=== PATIENT | female | born 1945 | race Caucasian/White ===

== ENCOUNTER 2023-08-30 12:09 | Emergency (ER) | payer MEDICARE ==
[~2023-08-30] VITALS: Ht 160 cm; Wt 72.6 kg
[2023-08-30 12:27] VITALS: O2SAT 99
[2023-08-30] MEDS ORDERED: CEPH500C2 MT (14:58)
[2023-08-30] MEDS ORDERED: BO1 TP (14:58)
[2023-08-30] MEDS ORDERED: SULF1TAB48 MT (14:58)
[2023-08-30] MEDS: BACITRACIN ZINC OINT UDPKT TOP ONE (15:20)
[2023-08-30 15:26] VITALS: BP 147/88; PULSE 90; RESP 16; TEMP 98.5
== END 2023-08-30 15:26 | disposition home or self-care (01) ==
LOC: ER 12:37
DX: L97.919 Non-pressure chronic ulcer of unspecified part of right lower leg with unspecified severity (principal)
CPT/HCPCS: 87070; 87077; 87186; 99283